=== PATIENT | female | born 1990 | race Caucasian/White ===

== ENCOUNTER 2022-02-13 10:32 | Emergency (ER) | payer BC ==
[~2022-02-13] VITALS: Ht 162.6 cm; Wt 63.5 kg
[2022-02-13 10:41] VITALS: BP 96/65
[2022-02-13] MEDS ORDERED: GUAI-671 PO (10:55)
--- NOTE | 2022-02-13 11:05 | NUR ---
Patient discharged to home in stable condition. Written and verbal after care instructions given. Patient verbalizes understanding of instruction.
== END 2022-02-13 11:07 | disposition home or self-care (01) ==
LOC: ER 10:37
DX: J20.9 Acute bronchitis, unspecified (principal); Z79.899 Other long term (current) drug therapy